=== PATIENT | male | born 1945 | race Caucasian/White ===

== ENCOUNTER 2016-06-10 14:00 | Observation (INO) | payer MEDICARE ==
[~2016-06-10] VITALS: Ht 172.7 cm; Wt 85.4 kg
[2016-06-10 14:07] VITALS: BP 175/85; PULSE 66; RESP 18; RESP 20; TEMP 98.3; O2SAT 97
[2016-06-10 14:34] LABS: AUTOMATED NEUTROPHIL # 4.7 TH/MM3 (1.8-7.7); BASOPHIL % 0.6 % (0.0-2.0); EOSINOPHIL # 0.3 TH/MM3 (0-0.4); HEMATOCRIT 43.7 % (39.0-51.0); HEMO FLAGS DIFF FINAL; LYMPHOCYTE # 2.2 TH/MM3 (1.0-4.8); MEAN CELL VOLUME 91.9 FL (80.0-100.0); MEAN CORPUSCULAR HEMOGLOBIN 31.3 PG (27.0-34.0); MEAN CORPUSCULAR HGB CONC 34.1 % (32.0-36.0); MONO % 9.4 % (0.0-8.0); PLATELET COUNT 171 TH/MM3 (150-450); RED BLOOD COUNT 4.76 MIL/MM3 (4.50-5.90); RED CELL DISTRIBUTION WIDTH 13.3 % (11.6-17.2)
[2016-06-10 14:43] LABS: APTT (PATIENT) 24.9 SEC (24.3-30.1); PROTHROMBIN TIME - PATIENT 11.3 SEC (9.8-11.6)
[2016-06-10 15:00] LABS: ALT (GPT) 78 U/L (12-78); ANION GAP 9 MEQ/L (5-15); AST (GOT) 30 U/L (15-37); BICARBONATE 22.8 MEQ/L (21.0-32.0); BLOOD UREA NITROGEN 12 MG/DL (7-18); CHLORIDE 104 MEQ/L (98-107); GLOMERULAR FILTRATION RATE 67 ML/MIN (>89); POTASSIUM 3.8 MEQ/L (3.5-5.1); SODIUM (NA) 136 MEQ/L (136-145)
[2016-06-10 15:02] LABS: ALKALINE PHOSPHATASE 68 U/L (45-117); TOTAL BILIRUBIN ADULT 0.3 MG/DL (0.2-1.0)
--- NOTE | 2016-06-10 17:04 | RADRPT ---
EXAM DATE/TIME: 06/10/2016 15:43 [place] COMPARISON: No previous studies available for comparison. INDICATIONS : Chest pains. MEDICAL HISTORY : Hypertension. Hypercholesterolemia. SURGICAL HISTORY : None. ENCOUNTER: Initial ACUITY: 1 day PAIN SCORE: 6/10 LOCATION: Bilateral chest FINDINGS: The cardiac silhouette is enlarged in transverse diameter. The lungs are free of acute parenchymal op acity. No effusions are identified. Osseous structures are intact. CONCLUSION: Cardiomegaly. No acute cardiopulmonary disease. Beau Estrada MD on June 10, 2016 at 17:02 Board Certified Radiologist. This report was verified electronically.
[2016-06-10] MEDS ORDERED: MIDAZOLAM HCL 2 MG/2 ML VIAL ONE (17:10)
[2016-06-10] MEDS ORDERED: VERAPAMIL INJ 10 MG/4 ML VIAL ONE (17:13)
[2016-06-10] MEDS ORDERED: NITROGLYCERIN INJ 5 ML ONE (17:14)
[2016-06-10] MEDS ORDERED: HEPARIN SODIUM - IV 10,000 UNITS/10 ML VIAL ONE (17:14)
[2016-06-10] MEDS ORDERED: IOHEXOL 350 MG/ML 100 ML BTL (for Cath Lab) OTHER ONE (18:00)
[2016-06-10] MEDS ORDERED: TICAGRELOR 90 MG TAB PO ONE ×2 (18:22→19:30)
[2016-06-10 18:40] VITALS: BP 150/95; PULSE 69; RESP 20; O2SAT 97
--- NOTE | 2016-06-10 19:21 | MA ---
cc: URMILA POLK DATE: 06/10/2016. PROCEDURE PERFORMED: 1. Left heart catheterization. 2. Left ventriculogram. 3. Successful PCI/ALMAS to proximal left anterior descending. INDICATIONS FOR THE PROCEDURE: Unstable angina. APPROACH: Right transradial. DESCRIPTION OF THE PROCEDURE IN DETAIL: Consent signed. The patient was brought into the cardiac catheterization lab in a fasting state. The right wrist was prepped and draped in the usual sterile fashion. Using 1% lidocaine and a micropuncture kit, a 6-[place] sheath was inserted into the right radial artery. Antispasmodic cocktail given. Then selective right and left coronary angiography was performed with a JR-4 and a JL 3.5 diagnostic catheters. Angiography was taken in multiple views. Then an angled pigtail was used to cross to the left ventricle followed by ventriculogram, pressure recording and pullback. We identified a significant 99 % lesion in the proximal left anterior descending. The left main was engaged with a 3.5 6-[place] guide. IV heparin was given for anticoagulation. The left anterior descending was wired with a run-through wire, which was anchored distally. The lesion was pre-dilated with a 2.5 x 12 balloon followed by insertion and deployment of a 2.75 x 15 drug-eluting stent. Final angiographic views revealed good stent apposition and expansion with DEEPTI III flow. The patient tolerated the procedure well without complications. The estimated blood loss was less than 40 cc. TOTAL CONTRAST: 100 cc. The right wrist access site was closed with a TR band. RESULTS: The left ventricular pressure was 135/9 with an left ventricular end diastolic pressure of 11. The aortic pressure was 126/74 with a mean of 97. There was no gradient upon pullback from the left ventricle to the aorta. The left ventriculogram revealed a symmetrically josé ventricle with an estimated ejection fraction of 60%. ANGIOGRAPHY: 1. The right coronary artery is a dominant vessel giving off the posterior descending artery. It has minimal luminal irregularities throughout with nonobstructive coronary artery disease and DEEPTI III flow. 2. The left main is free of disease. It is angiographically normal. 3. The left anterior descending is a transapical vessel. It has a significant tubular 99% lesion after the first septal. The first, second and third diagonals are patent with nonobstructing coronary artery disease. 4. The left circumflex has minimal luminal irregularities with nonobstructive coronary artery disease. It has a small AV groove circumflex. The first obtuse marginal is a small vessel. The obtuse marginal #2 and obtuse marginal #3 are of regular size and they are both patent with nonobstructive coronary artery disease. CONCLUSIONS: Single vessel coronary artery disease status post successful percutaneous coronary intervention / drug-eluting stent to the proximal left anterior descending. RECOMMENDATIONS: 1. Continue aggressive medical management for coronary artery disease 2. Therapeutic lifestyle changes. 3. Dual antiplatelet agents with aspirin and Brilinta. 2. Post-cath care. 3. Admit to the [facility]. 4. After bed rest, will encourage early ambulation and incentive spirometry. MD SAULO Escobar/ALLISON /6:22 PM /7:09 PM ISIAH
[2016-06-10] MEDS ORDERED: ACETAMINOPHEN 325 MG TAB PO PRN (19:30)
[2016-06-10] MEDS ORDERED: SODIUM CHLORIDE 0.9% FLUSH 5 ML FLUSH IVF PRN (19:30)
[2016-06-10] MEDS ORDERED: MISC INFORMATION XX ONE (19:30)
[2016-06-10 20:00] VITALS: BP 144/78; PULSE 72; RESP 18; TEMP 98.2; O2SAT 96
[2016-06-10 21:00] VITALS: PULSE 73
[2016-06-10] MEDS ORDERED: METOPROLOL TARTRATE 25 MG TAB PO SCH (21:00)
[2016-06-10] MEDS ORDERED: ATORVASTATIN 10 MG TAB PO SCH (21:00)
[2016-06-10] MEDS: LISINOPRIL 5 MG TAB PO SCH (21:26)
[2016-06-10] MEDS: ASPIRIN 81 MG CHEW TAB PO SCH (21:27)
[2016-06-10] MEDS: SODIUM CHLORIDE 0.9% FLUSH 5 ML FLUSH IVF SCH (21:27)
[2016-06-10 22:00] VITALS: PULSE 71
[2016-06-10] MEDS ORDERED: PREV30CA11 PO (22:46)
[2016-06-10] MEDS ORDERED: ATEN25TA PO (22:46)
[2016-06-10] MEDS ORDERED: GLIM4TAB PO (22:46)
[2016-06-10] MEDS ORDERED: FLUT1SPR5 EACH NARE (22:46)
[2016-06-10] MEDS ORDERED: AMLO5TAB2 PO (22:46)
[2016-06-10] MEDS ORDERED: FINA5TAB2 PO (22:46)
[2016-06-10] MEDS ORDERED: TEKT300T PO (22:46)
[2016-06-10] MEDS ORDERED: FISH120014 (22:46)
[2016-06-10] MEDS ORDERED: SITA1TAB2 PO (22:46)
[2016-06-10 23:00] VITALS: PULSE 72
[2016-06-11] VITALS (11 sets, daily range): BP systolic 121–130; BP diastolic 64–73; PULSE 60–86; RESP 18; TEMP 98.3–98.4; O2SAT 95–97
[2016-06-11 04:56] LABS: AUTOMATED NEUTROPHIL # 6.8 TH/MM3 (1.8-7.7); BASOPHIL # 0.1 TH/MM3 (0-0.2); BASOPHIL % 0.6 % (0.0-2.0); EOSINOPHIL # 0.5 TH/MM3 (0-0.4); EOSINOPHIL % 4.5 % (0.0-4.0); HEMATOCRIT 43.5 % (39.0-51.0); HEMO FLAGS DIFF FINAL; LYMPH % 21.6 % (9.0-44.0); LYMPHOCYTE # 2.3 TH/MM3 (1.0-4.8); MEAN CELL VOLUME 91.1 FL (80.0-100.0); MEAN CORPUSCULAR HEMOGLOBIN 31.9 PG (27.0-34.0); MONO % 9.2 % (0.0-8.0); NEUT % 64.1 % (16.0-70.0); PLATELET COUNT 152 TH/MM3 (150-450); RED BLOOD COUNT 4.77 MIL/MM3 (4.50-5.90); RED CELL DISTRIBUTION WIDTH 13.2 % (11.6-17.2); WHITE BLOOD COUNT 10.6 TH/MM3 (4.0-11.0)
[2016-06-11 05:23] LABS: BICARBONATE 24.1 MEQ/L (21.0-32.0)
[2016-06-11 05:25] LABS: POTASSIUM 3.5 MEQ/L (3.5-5.1)
[2016-06-11] MEDS ORDERED: DEXTROSE 50% IN WATER 50 ML VIAL(D50) IV PUSH PRN (07:15)
[2016-06-11] MEDS ORDERED: GLUCAGON 1 MG/ML VIAL OTHER PRN (07:15)
[2016-06-11] MEDS ORDERED: GLIMEPIRIDE 4 MG TAB PO SCH (08:00)
--- NOTE | 2016-06-11 08:31 | PD.CARD.PN ---
Subjective Subjective Remarks no complaints no overnight events s/p PCI to Proximal LAD Objective Medications Current Medications Medications (Trade) Dose Ordered Sig/Brendan Route Start Time Stop Time Status Last Admin (Tylenol) 325 mg Q4H PRN PO 06/10/16 19:30 06/11/16 01:51 (Aspirin Chew) 81 mg DAILY PO 06/10/16 19:30 06/10/16 21:27 (Brilinta) 90 mg BID PO 06/11/16 09:00 (NS Flush) 2 ml UNSCH PRN IVF 06/10/16 19:30 (NS Flush) 2 ml BID IVF 06/10/16 21:00 06/10/16 21:27 (Lopressor) 12.5 mg BID PO 06/10/16 21:00 Hold (Prinivil) 5 mg DAILY PO 06/10/16 19:30 06/10/16 21:26 (Lipitor) 10 mg HS PO 06/10/16 21:00 06/10/16 21:18 (Tenormin) 25 mg DAILY PO 06/11/16 09:00 (Norvasc) 5 mg DAILY PO 06/11/16 09:00 (Protonix) 40 mg DAILY PO 06/11/16 09:00 (Tekturna) 300 mg DAILY PO 06/11/16 09:00 (Proscar) 5 mg DAILY PO 06/11/16 09:00 (Amaryl) 4 mg DAILYAC PO 06/11/16 08:00 (Januvia) 100 mg DAILY PO 06/11/16 09:00 (D50w (Vial) Inj) 25 ml UNSCH PRN IV PUSH 06/11/16 07:15 (Glucagon Inj) 1 mg UNSCH PRN OTHER 06/11/16 07:15 Vital Signs / I&O Vital Signs Date Time Temp Pulse Resp B/P Pulse Ox O2 Delivery O2 Flow Rate FiO2 06/11/16 06:00 62 06/11/16 05:00 60 06/11/16 04:00 Room Air 06/11/16 04:00 69 06/11/16 04:00 98.4 69 18 121/64 95 06/11/16 03:00 65 06/11/16 02:00 68 06/11/16 01:00 70 06/11/16 00:00 66 06/11/16 00:00 98.3 66 18 130/73 97 06/10/16 23:00 72 06/10/16 22:00 71 06/10/16 21:00 73 06/10/16 20:00 72 06/10/16 20:00 Room Air 06/10/16 20:00 98.2 72 18 144/78 96 06/10/16 18:40 69 20 150/95 97 06/10/16 14:07 98.3 66 20 175/85 97 06/10/16 14:07 98.3 66 18 175/85 97 I/O 06/10/16 06/10/16 06/10/16 06/11/16 06/11/16 06/11/16 07:00 15:00 23:00 07:00 15:00 23:00 Intake Total 482 ml Output Total 1000 ml Balance -518 ml Intake Oral 480 ml IV Total 2 ml Output Urine Total 1000 ml # Bowel Movements 0 Physical Exam GENERAL: Well-nourished, well-developed patient. SKIN: Warm and dry. HEAD: Normocephalic. EYES: No scleral icterus. No injection or drainage. NECK: Supple, trachea midline. No JVD or lymphadenopathy. CARDIOVASCULAR: Regular rate and rhythm without murmurs, gallops, or rubs. RESPIRATORY: Breath sounds equal bilaterally. No accessory muscle use. GASTROINTESTINAL: Abdomen soft, non-tender, nondistended. EXTREMITIES: No cyanosis, or edema. NEUROLOGICAL: Awake, alert, and oriented x 3. Non-focal. Laboratory Laboratory Tests Test 06/10/16 06/11/16 14:18 03:26 White Blood Count 8.0 TH/MM3 10.6 TH/MM3 Red Blood Count 4.76 MIL/MM3 4.77 MIL/MM3 Hemoglobin 14.9 GM/DL 15.2 GM/DL Hematocrit 43.7 % 43.5 % Mean Corpuscular Volume 91.9 FL 91.1 FL Mean Corpuscular Hemoglobin 31.3 PG 31.9 PG Mean Corpuscular Hemoglobin 34.1 % 35.0 % Concent Red Cell Distribution Width 13.3 % 13.2 % Platelet Count 171 TH/MM3 152 TH/MM3 Mean Platelet Volume 9.9 FL 10.9 FL Neutrophils (%) (Auto) 59.0 % 64.1 % Lymphocytes (%) (Auto) 27.0 % 21.6 % Monocytes (%) (Auto) 9.4 % 9.2 % Eosinophils (%) (Auto) 4.0 % 4.5 % Basophils (%) (Auto) 0.6 % 0.6 % Neutrophils # (Auto) 4.7 TH/MM3 6.8 TH/MM3 Lymphocytes # (Auto) 2.2 TH/MM3 2.3 TH/MM3 Monocytes # (Auto) 0.8 TH/MM3 1.0 TH/MM3 Eosinophils # (Auto) 0.3 TH/MM3 0.5 TH/MM3 Basophils # (Auto) 0.0 TH/MM3 0.1 TH/MM3 CBC Comment DIFF FINAL DIFF FINAL Differential Comment Prothrombin Time 11.3 SEC Prothromb Time International 1.0 RATIO Ratio Activated Partial 24.9 SEC Thromboplast Time Sodium Level 136 MEQ/L 137 MEQ/L Potassium Level 3.8 MEQ/L 3.5 MEQ/L Chloride Level 104 MEQ/L 103 MEQ/L Carbon Dioxide Level 22.8 MEQ/L 24.1 MEQ/L Anion Gap 9 MEQ/L 10 MEQ/L Blood Urea Nitrogen 12 MG/DL 14 MG/DL Creatinine 1.08 MG/DL 1.07 MG/DL Estimat Glomerular Filtration 67 ML/MIN 68 ML/MIN Rate Random Glucose 202 MG/DL 129 MG/DL Calcium Level 9.5 MG/DL 9.8 MG/DL Total Bilirubin 0.3 MG/DL Aspartate Amino Transf 30 U/L (AST/SGOT) Alanine Aminotransferase 78 U/L (ALT/SGPT) Alkaline Phosphatase 68 U/L Troponin I LESS THAN 0.02 NG/ML Total Protein 7.5 GM/DL Albumin 3.9 GM/DL Imaging Last Impressions Chest X-Ray 06/10/16 0000 Signed Impressions: Service Date/Time: Friday, June 10, 2016 15:43 - CONCLUSION: Cardiomegaly. No acute cardiopulmonary disease. Beau Estrada MD Assessment and Plan Problem List: (1) Unstable angina Assessment and Plan: s/p PCI/ALMAS to LAD Doing well. Chest pain free. Ambulating without difficulty Cont DAPT with ASA and Brilinta Aggressive medical management for CAD Stable to discharge home today (2) CAD (coronary artery disease) (3) HTN (hypertension) (4) DM (diabetes mellitus) (5) HLD (hyperlipidemia) Problem Qualifiers (1) CAD (coronary artery disease): (2) HTN (hypertension): Qualified Code: I10 - Essential hypertension (3) DM (diabetes mellitus): (4) HLD (hyperlipidemia): Qualified Code: E78.5 - Hyperlipidemia, unspecified hyperlipidemia type Veronica-Adolph Dalal MD Jun 11, 2016 08:31
[2016-06-11] MEDS ORDERED: Aspirin Chew PO (08:34)
[2016-06-11] MEDS ORDERED: BRIL90TA PO (08:34)
--- NOTE | 2016-06-11 08:38 | HHI.DS ---
Discharge Summary Admission Date Jun 10, 2016 at 19:29 Discharge Date: Jun 11, 2016 Admitting Diagnosis Unstable Angina (1) Unstable angina Diagnosis: Principal (2) CAD (coronary artery disease) Diagnosis: Secondary (3) HTN (hypertension) Diagnosis: Secondary (4) DM (diabetes mellitus) Diagnosis: Secondary (5) HLD (hyperlipidemia) Diagnosis: Secondary Procedures Left Heart Cath LV 60% 99% Lesion in the Proximal LAD PCI/ALMAS to LAD Brief History 70 y/o M HTN, DM, HLD, achalasia presenting with burning sensation in the chest during the last couple of weeks. Burning sensation is exacerbated by exertion. No radiation. No cardiac interventions in the past. Discomfort is relieved by SL nitro. CBC/BMP: 06/11/16 0326 06/11/16 0326 Significant Findings Laboratory Tests Test 06/10/16 06/11/16 14:18 03:26 Monocytes (%) (Auto) 9.4 % (0.0-8.0) 9.2 % (0.0-8.0) Estimat Glomerular Filtration 67 ML/MIN (>89) 68 ML/MIN (>89) Rate Random Glucose 202 MG/DL 129 MG/DL (74-106) (74-106) Troponin I LESS THAN 0.02 NG/ML (0.02-0.05) Eosinophils (%) (Auto) 4.5 % (0.0-4.0) Monocytes # (Auto) 1.0 TH/MM3 (0-0.9) Eosinophils # (Auto) 0.5 TH/MM3 (0-0.4) Imaging Last Impressions Chest X-Ray 06/10/16 0000 Signed Impressions: Service Date/Time: Friday, June 10, 2016 15:43 - CONCLUSION: Cardiomegaly. No acute cardiopulmonary disease. Beau Estrada MD PE at Discharge GENERAL: Well-nourished, well-developed patient. SKIN: Warm and dry. HEAD: Normocephalic. EYES: No scleral icterus. No injection or drainage. NECK: Supple, trachea midline. No JVD or lymphadenopathy. CARDIOVASCULAR: Regular rate and rhythm without murmurs, gallops, or rubs. RESPIRATORY: Breath sounds equal bilaterally. No accessory muscle use. GASTROINTESTINAL: Abdomen soft, non-tender, nondistended. EXTREMITIES: No cyanosis, or edema. NEUROLOGICAL: Awake, alert, and oriented x 3. Non-focal. Hospital Course Mr. Terrlel transradial Left Heart Catheterization and successful drug eluting stent placement in the LAD in the setting of Unstable Angina. Pt Condition on Discharge: Good Discharge Disposition: Discharge Home Discharge Instructions DIET: Follow Instructions for: Diabetic Diet Activities you can perform: Regular-No Restrictions Adolph Recio MD Jun 11, 2016 08:38
[2016-06-11] MEDS: SODIUM CHLORIDE 0.9% FLUSH 5 ML FLUSH IVF SCH (09:00)
[2016-06-11] MEDS ORDERED: ATENOLOL 25 MG TAB PO SCH (09:00)
[2016-06-11] MEDS ORDERED: ALISKIREN HEMIFUMARATE 150 MG TAB PO SCH (09:00)
[2016-06-11] MEDS ORDERED: PANTOPRAZOLE SOD 40 MG DELAYED RELEASE TAB PO SCH (09:00)
[2016-06-11] MEDS ORDERED: TICAGRELOR 90 MG TAB PO SCH (09:00)
[2016-06-11] MEDS ORDERED: amLODIPine BESYLATE 5 MG TAB PO SCH (09:00)
[2016-06-11] MEDS ORDERED: FINASTERIDE 5 MG TAB PO SCH (09:00)
[2016-06-11] MEDS: ASPIRIN 81 MG CHEW TAB PO SCH (09:54)
[2016-06-11] MEDS: LISINOPRIL 5 MG TAB PO SCH (09:55)
[2016-06-11] MEDS ORDERED: INSULIN ASPART SUPPLEMENTAL SCALE SQ SCH (11:00)
--- NOTE | 2016-06-11 13:00 | EKG ---
Date Performed: 06/10/2016 Time Performed: 14:14:37 PTAGE: 70 years EKG: Sinus rhythm NORMAL ECG NO PREVIOUS TRACING DOCTOR: Edgar Mantilla Interpretating Date/Time 06/11/2016 12:58:28
--- NOTE | 2016-06-11 13:00 | EKG ---
Date Performed: 06/11/2016 Time Performed: 05:39:14 PTAGE: 70 years EKG: Sinus rhythm Normal ECG PREVIOUS TRACING : 06/10/2016 14.14 DOCTOR: Edgar Mantilla Interpretating Date/Time 06/11/2016 12:58:32
== END 2016-06-11 10:20 | disposition home or self-care (01) ==
LOC: HCAT 14:00 → HCIS 18:53 → HCAT 19:30
PROVIDERS: ADMIT Radiology Vascular & Interventional Radiology; ATTEND Radiology Vascular & Interventional Radiology
DX: I25.110 Atherosclerotic heart disease of native coronary artery with unstable angina pectoris (principal); I10 Essential (primary) hypertension; E78.5 Hyperlipidemia, unspecified; E11.9 Type 2 diabetes mellitus without complications; Z79.84 Long term (current) use of oral hypoglycemic drugs; Z98.61 Coronary angioplasty status
CPT/HCPCS: 71010; 80048; 80053; 84484; 85025; 85610; 85730; 92928; 93005; 93458; C1725; C1769; C1874; C1887; C1893; G0378; J1644; J2250; J3010; Q9967